=== PATIENT | female | born 1990 | race Caucasian/White ===

== ENCOUNTER 2018-08-11 14:56 | Emergency (ER) | payer BC ==
[~2018-08-11] VITALS: Ht 152.4 cm; Wt 49.9 kg
[2018-08-11 15:51] VITALS: BP 126/76
[2018-08-11 16:19] LABS: Urine Bacteria FEW /hpf (None Seen); Urine Blood 3+ /uL (Negative); Urine Specific Gravity 1.001 (1.001-1.035); Urine WBC 13 /hpf (0 - 5)
[2018-08-11] MEDS ORDERED: PHENAZOPYRIDINE HCL 100 MG TAB ONE ×2 (16:27→16:28)
[2018-08-11] MEDS ORDERED: PHENAZOPYRIDINE HCL 100 MG TAB PO ONE (16:30)
== END 2018-08-11 16:38 | disposition home or self-care (01) ==
LOC: ER 14:56
DX: N39.0 Urinary tract infection, site not specified (principal)
CPT/HCPCS: 81001